=== PATIENT | male | born 1980 | race Caucasian/White ===

== ENCOUNTER → 2017-07-15 | Outpatient (CLI) | payer BC ==
[~2017-07-15] MED LIST: CATHETER FLUSH 10 ML SYR IV PRN
--- NOTE | 2017-07-15 15:38 | Diagnostic Imaging Report ---
INDICATION: Abdominal pain After intravenous administration of 5.2 mCi technetium 99m Choletec, scintigraphic images of the upper abdomen are obtained. Initial images reveal normal distribution of activity throughout the liver. There is prompt appearance of activity in the biliary tree and gallbladder. Activity passes freely into the small bowel. Ensure meal was ingested with gallbladder ejection fraction calculated to be 49%. Normal values are 35% or greater. IMPRESSION: Normal hepatobiliary scan without evidence of cholecystitis or biliary obstruction. Dictated by: Dictated on workstation # [id number]
== END ==
LOC: CARD 09:40
PROVIDERS: ATTEND Family Medicine
DX: R74.8 Abnormal levels of other serum enzymes (principal)
CPT/HCPCS: 78227

== ENCOUNTER → 2023-05-12 | Outpatient (CLI) | payer BC ==
--- NOTE | 2023-05-12 09:16 | Diagnostic Imaging Report ---
PROCEDURE: US Scrotum. TECHNIQUE: Multiple real-time grayscale images were obtained over the scrotum in various projections bilaterally. INDICATION: Left posterior testicle lump. Right testicle measures 5.0 x 2.1 x 3.4 cm and left testicle measures 4.8 x 2.0 x 3.3 cm. Both testes demonstrate homogeneous echotexture. No testicular mass is detected. There is normal blood flow to both testes. Epididymides are unremarkable bilaterally. There is a small left hydrocele which may account for the lump. No right-sided hydrocele is seen. There is no varicocele. IMPRESSION: 1. No evidence of testicular mass or vascular compromise. 2. Small left hydrocele. Dictated by: Dictated on workstation # [id number]
== END ==
LOC: RAD 08:33
PROVIDERS: ATTEND Family Medicine
DX: N43.3 Hydrocele, unspecified (principal); N50.9 Disorder of male genital organs, unspecified
CPT/HCPCS: 76870